=== PATIENT | male | born 1945 | race Caucasian/White ===

== ENCOUNTER 2024-04-28 15:40 | Inpatient (IN) | payer MEDICARE, BC ==
[~2024-04-28] VITALS: Ht 180.3 cm; Wt 109.8 kg
[~2024-04-28 15:40] MED LIST: ATENOLOL25 MG; HUMALOG100 UNIT/1; KLOR-CON M2020 MEQ; LANTUS100 UNITS/; LASIX40 MG PO; PRADAXA75 MG
[2024-04-28 16:20] VITALS: PULSE 90; RESP 18; TEMP 97.9
[2024-04-28] MEDS: TRAMADOL HCL 50 MG TAB PO ONE (17:02)
[2024-04-28 18:34] LABS: BASOPHILS % 0.3 % (0.0-1.0); EOSINOPHILS # (AUTO) 0.1 (0.0-0.4); EOSINOPHILS % 0.5 % (0.0-6.0); HEMATOCRIT 43.1 % (38.2-49.6); HEMOGLOBIN 13.9 g/dL (14.0-18.0); LYMPHOCYTES # (AUTO) 0.9 (1.0-3.2); LYMPHOCYTES % 7.5 % (18.0-39.1); MEAN CORPUSCULAR HEMOGLOBIN 30.6 pg (28-32); MEAN CORPUSCULAR HGB CONC 32.3 g/dL (31-35); MEAN CORPUSCULAR VOLUME 94.9 fL (81-99); MONOCYTES # (AUTO) 0.6 (0.2-0.8); MONOCYTES % 4.7 % (4.4-11.3); NEUTROPHILS # (AUTO) 10.7 (2.1-6.9); NEUTROPHILS % 86.7 % (38.7-80.0); PLATELET COUNT 154 x10e3/uL (140-360); RED BLOOD COUNT 4.54 x10e6/uL (4.3-5.7)
[2024-04-28 18:41] LABS: INR 1.12; PROTHROMBIN TIME 15.1 seconds (11.9-14.5)
[2024-04-28 18:42] LABS: PARTIAL THROMBOPLASTIN TIME 29.2 seconds (23.8-35.5)
[2024-04-28 18:52] LABS: ANION GAP 17.1 mmol/L (8-16); BILIRUBIN,TOTAL 0.7 mg/dL (0.2-1.2); CREATININE, SERUM 0.91 mg/dL (0.72-1.25); POTASSIUM 4.1 mmol/L (3.5-5.1); TOTAL PROTEIN 7.9 g/dL (6.5-8.1)
[2024-04-28 20:00] VITALS: BP 149/87; PULSE 103; RESP 18; TEMP 97.9; O2SAT 95
[2024-04-28] MEDS: ONDANSETRON HCL INJ 2MG/ML 2ML 2 MG/ML VIAL IV PRN (20:11)
[2024-04-28] MEDS: Morphine 4mg INJECTION 4 MG/ML INJ IV PRN (20:12)
[2024-04-28] MEDS ORDERED: MEMANTINE HCL10 MG PO (21:20)
[2024-04-28] MEDS ORDERED: HYDROCHLOROTH12.5 MG PO (21:20)
[2024-04-28] MEDS ORDERED: FARXIGA10 MG PO (21:20)
[2024-04-28] MEDS ORDERED: METOPROLOL SUCC25 MG PO (21:20)
[2024-04-28] MEDS ORDERED: LANTUS 3ML100 UNITS/ SQ (21:20)
[2024-04-28] MEDS ORDERED: ELIQUIS5 MG PO (21:20)
[2024-04-28] MEDS ORDERED: FUROSEMIDE40 MG PO (21:20)
[2024-04-28] MEDS ORDERED: SERTRALINE HCL50 MG PO (21:20)
[2024-04-28] MEDS ORDERED: HUMALOG100 UNIT/3 SQ (21:20)
[2024-04-28 21:25] VITALS: BP 144/87; O2SAT 99
[2024-04-28] MEDS: SODIUM CHLORIDE 0.9% 1000ML 1,000 ML IV SCH (23:23)
[2024-04-29] VITALS (10 sets, daily range): BP systolic 140–159; BP diastolic 82–97; PULSE 86–100; RESP 16–18; TEMP 97.7–98.3; O2SAT 95–98
[2024-04-29] MEDS ORDERED: POTASSIUM CHLORIDE 20 MEQ TAB CR PO PRN (01:30)
[2024-04-29] MEDS ORDERED: DEXTROSE 50% SYRINGE 50 ML IV PRN ×2 (01:30→16:00)
[2024-04-29] MEDS ORDERED: BENZONATATE 100 MG CAP PO PRN (01:30)
[2024-04-29] MEDS ORDERED: MELATONIN 5 MG TABLET PO PRN (01:30)
[2024-04-29] MEDS ORDERED: DIPHENHYDRAMINE HCL 25 MG CAP PO PRN (01:30)
[2024-04-29] MEDS ORDERED: ACETAMINOPHEN 325 MG TAB PO PRN (01:30)
[2024-04-29] MEDS ORDERED: LIDOCAINE 4% PATCH TP PRN (01:30)
[2024-04-29] MEDS ORDERED: ALBUTEROL/IPRATROPIUM 3 ML NEB NEB PRN (01:30)
[2024-04-29] MEDS ORDERED: SIMETHICONE 80 MG CHEW PO PRN (01:30)
[2024-04-29] MEDS ORDERED: HYDRALAZINE HCL 20 MG/ML VIAL IV PRN (01:30)
[2024-04-29 05:32] LABS: BASOPHILS % 0.3 % (0.0-1.0); EOSINOPHILS # (AUTO) 0.1 (0.0-0.4); EOSINOPHILS % 1.1 % (0.0-6.0); HEMATOCRIT 38.9 % (38.2-49.6); HEMOGLOBIN 12.9 g/dL (14.0-18.0); LYMPHOCYTES # (AUTO) 1.1 (1.0-3.2); LYMPHOCYTES % 11.3 % (18.0-39.1); MEAN CORPUSCULAR HEMOGLOBIN 30.5 pg (28-32); MEAN CORPUSCULAR HGB CONC 33.2 g/dL (31-35); MONOCYTES # (AUTO) 0.5 (0.2-0.8); MONOCYTES % 4.9 % (4.4-11.3); NEUTROPHILS # (AUTO) 7.8 (2.1-6.9); PLATELET COUNT 149 x10e3/uL (140-360); RED BLOOD COUNT 4.23 x10e6/uL (4.3-5.7); RED CELL DISTRIBUTION WIDTH 13.1 % (11.7-14.4); WHITE BLOOD COUNT 9.47 x10e3/uL (4.8-10.8)
[2024-04-29 06:09] LABS: ALBUMIN 3.8 g/dL (3.5-5.0); BILIRUBIN,TOTAL 0.7 mg/dL (0.2-1.2); CALCIUM 9.2 mg/dL (8.4-10.2); CREATININE, SERUM 0.74 mg/dL (0.72-1.25); TOTAL PROTEIN 7.5 g/dL (6.5-8.1)
[2024-04-29] MEDS: PANTOPRAZOLE SOD 40 MG TABEC PO SCH (07:30)
[2024-04-29] MEDS: METOPROLOL SUCCINATE 25 MG TAB XL PO SCH (10:00)
[2024-04-29] MEDS ORDERED: PROPOFOL IV EMULSION 10 MG/ML 20 ML VIAL ONE (12:11)
[2024-04-29] MEDS ORDERED: LIDOCAINE HCL 2% LOCAL INJ 5 ML SDV VIAL INJ ONE (12:11)
[2024-04-29] MEDS ORDERED: FENTANYL CITRATE/PF 100MCG/2 ML INJ ONE (12:11)
[2024-04-29] MEDS ORDERED: DEXMEDETOMIDINE HCL 0 ML ONE (12:56)
[2024-04-29] MEDS ORDERED: SODIUM CHLORIDE 0.9% 0 ML ONE (13:00)
[2024-04-29] MEDS ORDERED: ACETAMINOPHEN 1000 MG/100 ML 100 ML IV ONE (13:13)
[2024-04-29] MEDS ORDERED: SEVOFLURANE INHAL SOLN 250 ML PEN BTL ONE (13:23)
[2024-04-29] MEDS ORDERED: FAMOTIDINE 20 MG/2 ML VIAL IV ONE (13:31)
[2024-04-29] MEDS ORDERED: ONDANSETRON HCL INJ 2MG/ML 2ML 2 MG/ML VIAL ONE (13:32)
[2024-04-29] MEDS: INSULIN LISPRO 100 UNIT/1 ML 3ML VIAL SQ SCH (16:30)
[2024-04-29] MEDS ORDERED: ENOXAPARIN SOD INJ 40 MG/0.4 ML SYR SC SCH (17:00)
[2024-04-29] MEDS: MEMANTINE 10 MG TAB PO SCH (17:03)
[2024-04-29] MEDS: CEFAZOLIN SODIUM 2 GM in SODIUM CHLORIDE 0.9% 100 ML IV SCH (20:50)
[2024-04-30] VITALS (10 sets, daily range): BP systolic 125–165; BP diastolic 82–98; PULSE 94–118; RESP 16–21; TEMP 98–98.3; O2SAT 96–98
[2024-04-30] MEDS: DIPHENHYDRAMINE HCL INJ 50 MG/ML VIAL IM PRN (02:21)
[2024-04-30 08:26] LABS: CALCIUM 9.1 mg/dL (8.4-10.2); CREATININE, SERUM 0.73 mg/dL (0.72-1.25)
[2024-04-30] MEDS: SERTRALINE HCL 50 MG TAB PO SCH (09:12)
[2024-04-30] MEDS: HYDROCODONE/APAP 5MG-325MG TAB PO PRN (09:23)
[2024-04-30] MEDS ORDERED: ALLERGY RELIEF10 M4 PO (12:37)
[2024-04-30] MEDS: HYDROCODONE/APAP 7.5MG-325MG 1 EA TAB PO PRN (14:29)
[2024-04-30] MEDS: ONDANSETRON HCL INJ 2MG/ML 2ML 2 MG/ML VIAL IV PRN (14:37)
[2024-04-30] MEDS ORDERED: ENOXAPARIN SOD INJ 40 MG/0.4 ML SYR SC SCH (17:00)
[2024-04-30] MEDS ORDERED: APIXABAN 5 MG TABLET PO SCH (17:00)
[2024-04-30] MEDS: ENOXAPARIN SOD INJ 40 MG/0.4 ML SYR SC ONE (17:03)
[2024-04-30] MEDS: METOPROLOL SUCCINATE 25 MG TAB XL PO SCH (17:05)
[2024-04-30 20:40] LABS: BASOPHILS % 0.4 % (0.0-1.0); EOSINOPHILS # (AUTO) 0.1 (0.0-0.4); EOSINOPHILS % 0.6 % (0.0-6.0); HEMATOCRIT 37.5 % (38.2-49.6); HEMOGLOBIN 11.5 g/dL (14.0-18.0); LYMPHOCYTES # (AUTO) 0.8 (1.0-3.2); LYMPHOCYTES % 8.3 % (18.0-39.1); MEAN CORPUSCULAR HEMOGLOBIN 30.4 pg (28-32); MEAN CORPUSCULAR HGB CONC 30.7 g/dL (31-35); MEAN CORPUSCULAR VOLUME 99.2 fL (81-99); MONOCYTES # (AUTO) 0.5 (0.2-0.8); NEUTROPHILS % 85.4 % (38.7-80.0); PLATELET COUNT 134 x10e3/uL (140-360); RED BLOOD COUNT 3.78 x10e6/uL (4.3-5.7); RED CELL DISTRIBUTION WIDTH 13.6 % (11.7-14.4); WHITE BLOOD COUNT 9.36 x10e3/uL (4.8-10.8)
[2024-04-30] MEDS: INSULIN GLARGINE 100 UNITS/ML VIAL SQ SCH (21:01)
[2024-05-01] VITALS (10 sets, daily range): BP systolic 129–156; BP diastolic 73–95; PULSE 68–98; RESP 15–19; TEMP 97.4–98.2; O2SAT 96–100
[2024-05-01 08:20] LABS: BASOPHILS % 0.5 % (0.0-1.0); EOSINOPHILS # (AUTO) 0.3 (0.0-0.4); EOSINOPHILS % 3.2 % (0.0-6.0); HEMATOCRIT 34.2 % (38.2-49.6); HEMOGLOBIN 10.9 g/dL (14.0-18.0); LYMPHOCYTES # (AUTO) 1.3 (1.0-3.2); LYMPHOCYTES % 15.8 % (18.0-39.1); MEAN CORPUSCULAR HEMOGLOBIN 30.9 pg (28-32); MEAN CORPUSCULAR HGB CONC 31.9 g/dL (31-35); MEAN CORPUSCULAR VOLUME 96.9 fL (81-99); MONOCYTES # (AUTO) 0.5 (0.2-0.8); MONOCYTES % 6.2 % (4.4-11.3); NEUTROPHILS # (AUTO) 6.1 (2.1-6.9); NEUTROPHILS % 73.9 % (38.7-80.0); PLATELET COUNT 137 x10e3/uL (140-360); RED BLOOD COUNT 3.53 x10e6/uL (4.3-5.7); RED CELL DISTRIBUTION WIDTH 13.4 % (11.7-14.4); WHITE BLOOD COUNT 8.25 x10e3/uL (4.8-10.8)
[2024-05-01] MEDS: LORATADINE 10 MG TAB PO SCH (08:37)
[2024-05-01] MEDS: APIXABAN 5 MG TABLET PO SCH (08:37)
[2024-05-01] MEDS: FUROSEMIDE 40 MG TAB PO SCH (08:37)
[2024-05-01 08:41] LABS: ANION GAP 13.5 mmol/L (8-16); CALCIUM 8.9 mg/dL (8.4-10.2); CREATININE, SERUM 0.66 mg/dL (0.72-1.25); POTASSIUM 3.5 mmol/L (3.5-5.1)
[2024-05-01] MEDS: NON-FORMULARY MEDICATION (Dapagliflozin Propanediol (Farxiga) 1 TAB) PO SCH (08:46)
[2024-05-01] MEDS: KETOROLAC TROMETHAMINE 30 MG/ML VIAL IV SCH (13:07)
[2024-05-01] MEDS: DOCUSATE SODIUM 100 MG CAP PO PRN (13:08)
[2024-05-01] MEDS: LACTULOSE SYRUP 20 GM/30 ML UDC PO PRN (17:20)
[2024-05-02 04:00] VITALS: BP 141/71; PULSE 73; RESP 17; TEMP 97.7; O2SAT 99
[2024-05-02 05:22] LABS: BASOPHILS % 0.7 % (0.0-1.0); EOSINOPHILS # (AUTO) 0.3 (0.0-0.4); EOSINOPHILS % 5.6 % (0.0-6.0); HEMATOCRIT 35.4 % (38.2-49.6); HEMOGLOBIN 11.2 g/dL (14.0-18.0); LYMPHOCYTES # (AUTO) 1.3 (1.0-3.2); LYMPHOCYTES % 21.7 % (18.0-39.1); MEAN CORPUSCULAR HEMOGLOBIN 30.4 pg (28-32); MEAN CORPUSCULAR HGB CONC 31.6 g/dL (31-35); MEAN CORPUSCULAR VOLUME 95.9 fL (81-99); MONOCYTES # (AUTO) 0.3 (0.2-0.8); MONOCYTES % 5.8 % (4.4-11.3); NEUTROPHILS # (AUTO) 3.9 (2.1-6.9); NEUTROPHILS % 65.9 % (38.7-80.0); PLATELET COUNT 127 x10e3/uL (140-360); RED BLOOD COUNT 3.69 x10e6/uL (4.3-5.7); RED CELL DISTRIBUTION WIDTH 13.5 % (11.7-14.4); WHITE BLOOD COUNT 5.86 x10e3/uL (4.8-10.8)
[2024-05-02 05:57] LABS: ANION GAP 12.4 mmol/L (8-16); CALCIUM 8.7 mg/dL (8.4-10.2); CREATININE, SERUM 0.66 mg/dL (0.72-1.25); POTASSIUM 3.4 mmol/L (3.5-5.1)
[2024-05-02 07:33] VITALS: PULSE 73; RESP 18; O2SAT 97
[2024-05-02 08:28] VITALS: BP 140/91; PULSE 70; RESP 18; TEMP 97.9; O2SAT 97
[2024-05-02 08:34] VITALS: BP 140/91; PULSE 70; RESP 18; TEMP 97.9; O2SAT 97
[2024-05-02] MEDS: HYDROCODONE/APAP 5MG-325MG TAB PO PRN (11:10)
[2024-05-02 11:24] VITALS: BP 137/75; PULSE 54; RESP 18; TEMP 97.9; O2SAT 97
== END 2024-05-02 16:25 | DRG 481 ==
LOC: ER 16:47 → ERHOLD 18:13 → MED/SURG 20:25
PROVIDERS: ADMIT Internal Medicine; ATTEND Internal Medicine
PROC: 2W3AXYZ Immobilization of Right Upper Arm using Other Device (ICD-10-PCS; 2024-04-28)
PROC: 0QS606Z Reposition Right Upper Femur with Intramedullary Internal Fixation Device, Open Approach (ICD-10-PCS; principal; 2024-04-29 12:49)
DX: S72.144A Nondisplaced intertrochanteric fracture of right femur, initial encounter for closed fracture (principal); I48.20 Chronic atrial fibrillation, unspecified; S42.294A Other nondisplaced fracture of upper end of right humerus, initial encounter for closed fracture; I69.951 Hemiplegia and hemiparesis following unspecified cerebrovascular disease affecting right dominant side; I10 Essential (primary) hypertension; E11.9 Type 2 diabetes mellitus without complications; E78.5 Hyperlipidemia, unspecified; I69.920 Aphasia following unspecified cerebrovascular disease; W01.0XXA Fall on same level from slipping, tripping and stumbling without subsequent striking against object, initial encounter; Y92.099 Unspecified place in other non-institutional residence as the place of occurrence of the external cause; Y99.9 Unspecified external cause status; Z79.4 Long term (current) use of insulin; Z82.49 Family history of ischemic heart disease and other diseases of the circulatory system
CPT/HCPCS: 36415; 70450; 71045; 72125; 72170; 76000; 80048; 80053; 82948; 85025; 85610; 85730; 93005; 93306; 93971; 94799; 99284; C1713; J0360; J0690; J1200; J1650; J1815; J1885; J2003; J2270; J2405; J7030; J7050

== ENCOUNTER 2024-07-08 07:31 | Emergency (ER) | payer MEDICARE, BC ==
[~2024-07-08] VITALS: Ht 177.8 cm; Wt 109.8 kg
[~2024-07-08 07:31] MED LIST changes: +ALLERGY RELIEF10 M4 PO; +ELIQUIS5 MG PO; +FARXIGA10 MG PO; +FUROSEMIDE40 MG PO; +HUMALOG100 UNIT/3 SQ; +HYDROCHLOROTH12.5 MG PO; +LANTUS 3ML100 UNITS/ SQ; +MEMANTINE HCL10 MG PO; +METOPROLOL SUCC25 MG PO; +SERTRALINE HCL50 MG PO
[2024-07-08] MEDS: ALBUTEROL/IPRATROPIUM 3 ML NEB NEB ONE (08:22)
[2024-07-08 08:37] VITALS: PULSE 78; RESP 23
[2024-07-08] MEDS ORDERED: AZITHROMYCIN250 MG PO (09:08)
[2024-07-08] MEDS ORDERED: TYLENOL325 MG PO (09:08)
[2024-07-08] MEDS ORDERED: IPRAT-ALBUT 0.5-3 ML NEB (09:08)
[2024-07-08] MEDS ORDERED: EASY NEB COMPR1 EACH (09:09)
[2024-07-08 09:33] VITALS: PULSE 78; RESP 20; TEMP 99; O2SAT 96
== END 2024-07-08 09:33 | disposition home or self-care (01) ==
LOC: FSED 07:33
DX: R06.02 Shortness of breath (principal); J06.9 Acute upper respiratory infection, unspecified; J98.01 Acute bronchospasm; I10 Essential (primary) hypertension; E11.9 Type 2 diabetes mellitus without complications; I48.91 Unspecified atrial fibrillation; Z11.52 Encounter for screening for COVID-19; R94.31 Abnormal electrocardiogram [ECG] [EKG]; Z86.73 Personal history of transient ischemic attack (TIA), and cerebral infarction without residual deficits
CPT/HCPCS: 0223U; 71046; 80053; 82553; 83880; 84484; 85025; 87400; 93005; 99284